=== PATIENT | female | born 1960 | race Caucasian/White ===

== ENCOUNTER → 2017-05-10 | Outpatient (CLI) | payer BC ==
--- NOTE | 2017-05-10 18:05 | KCIC ---
Bilateral digital screening mammograms: Reason for examination: Routine screening. Comparison is made to previous studies dated back to 04/19/2014. Interpretation was made with the benefit of CAD. The skin and nipples show no abnormalities. No abnormal axillary lymph nodes are seen. The breast parenchyma is extremely dense. (Breast density: Category D.) There appears to be a new nodule developing in the left breast posteriorly at the 10:00 C position which appears to measure approximately 8 mm in greatest dimension. Further evaluation with coned compression views and ultrasound is recommended. There are no other dominant masses, suspicious calcifications or architectural distortion. Impression: 8 mm nodular density developing in the 10:00 C position of the left breast. Recommend further evaluation with coned compression views and ultrasound. Your patient's mammogram demonstrates that she has dense breast tissue (breast density category C or D), which could hide abnormalities, and if she has other risk factors for breast cancer that have been identified, she might benefit from supplemental screening tests that may be suggested by you as her ordering physician. Dense breast tissue, in and of itself, is a relatively common condition. Therefore, this information is not provided to cause undue concern, but rather to raise your awareness and to promote discussion with your patient regarding the presence of other risk factors, in addition to dense breast tissue. Your patient's mammography results will be sent to her. BI-RAD Category 0: Incomplete. Additional imaging is recommended. "Our facility is accredited by the [employer] Mammography [employer]." This patient's information has been entered into a reminder system for the patient to be notified with the results of her examination and a target date for the next mammogram. Electronically signed by: Yeni Greene MD (05/10/2017 6:02 PM) [facility]
== END | disposition home or self-care (01) ==
LOC: KCIC MAMMO 17:23
PROVIDERS: ATTEND Family Medicine
DX: Z12.31 Encounter for screening mammogram for malignant neoplasm of breast (principal)
CPT/HCPCS: G0202; 77067

== ENCOUNTER → 2017-05-21 | Outpatient (CLI) | payer BC ==
--- NOTE | 2017-05-21 09:21 | KCIC ---
Diagnostic digital mammograms left breast: Reason for examination: Nodular density on screening mammogram. Comparison is made to mammographic examination dated 05/10/2017. Coned compression views were obtained of the left breast with attention to the upper inner quadrant. With these additional views, small parenchymal density persists which measures approximately 6 mm in size. Further evaluation with ultrasound will follow. IMPRESSION: Small nodular density appears to persist in the 10:00 C position. Ultrasound to follow. BI-RADS Category 0: Incomplete. Ultrasound to follow. Left breast ultrasound: Ultrasound examination of the left breast was performed. In the 12:00 position, there is a 7 mm cyst. In the 8:00 position 3 cm from the nipple, there is a benign-appearing 4.7 mm fibrocystic lesion. In the 10:00 position 6 cm from the nipple and probably corresponding to the area of mammographic concern, there is a 5 mm hypoechoic lesion with a fatty hilum suggested and this probably represents an intramammary lymph node. No suspicious nodules are seen. No abnormal appearing lymph nodes are seen in the left axilla. IMPRESSION: Small cyst at the 12:00 position. Small fibrocystic lesion at the 8:00 position. Probable intramammary lymph node at the 10:00 position. Recommend reevaluation in 6 months with mammograms and ultrasound of the left breast. BI-RADS Category 3: Probably Benign. "Our facility is accredited by the [employer]amm[employer]." This patient's information has been entered into a reminder system for the patient to be notified with the results of her examination and a target date for the next mammogram. Electronically signed by: Yeni Greene MD (05/21/2017 9:18 AM) [facility]
== END | disposition home or self-care (01) ==
LOC: KCIC MAMMO 07:53
PROVIDERS: ATTEND Family Medicine
DX: N63.20 Unspecified lump in the left breast, unspecified quadrant (principal); N60.02 Solitary cyst of left breast
CPT/HCPCS: 76641; G0206; 77065

== ENCOUNTER → 2017-11-29 | Outpatient (CLI) | payer BC | END | disposition home or self-care (01) | LOC: KCIC MAMMO 13:11 | DX: R92.8 Other abnormal and inconclusive findings on diagnostic imaging of breast (principal) | CPT/HCPCS: 76641; 77065 ==

== ENCOUNTER → 2018-05-17 | Outpatient (CLI) | payer BC ==
--- NOTE | 2018-05-17 14:10 | KCIC ---
EXAM: Bilateral screening mammogram. HISTORY: 57-year-old female presents for screening mammography. TECHNIQUE: Full-field digital craniocaudal and mediolateral oblique views of both breasts are obtained for evaluation. Computer aided detection with [employer] software version 9.3 was applied. COMPARISON: 11/29/2017 BREAST PARENCHYMAL DENSITY: Level D - Extremely dense. FINDINGS: There is no new suspicious mass, microcalcification or region of architectural distortion. IMPRESSION: BI-RADS Category 2: Benign finding(s). RECOMMENDATION: Annual mammography is recommended. If your mammogram demonstrates that you have dense breast tissue, which could hide abnormalities, and if you have other risk factors for breast cancer that have been identified, you might benefit from supplemental screening tests that may be suggested by your ordering physician. Dense breast tissue, in and of itself, is a relatively common condition. This information is not provided to cause undue concern, but rather to raise your awareness and to promote discussion with your physician regarding the presence of other risk factors, in addition to dense breast tissue. A report of your mammography results will be sent to you and your physician. You should contact your physician if you have any questions or concerns regarding this report. Mammography is a sensitive method for finding small breast cancers, but it does not detect them all and is not a substitute for careful clinical examination. A negative mammogram does not negate a clinically suspicious finding and should not result in delay in biopsying a clinically suspicious abnormality. PQRS compliance statement - Patient information was entered into a reminder system with a target due date for the next mammogram. "Our facility is accredited by the [employer] Mammography [employer]." Electronically signed by: Loni Farrell MD (05/17/2018 2:06 PM) [id number]
== END | disposition home or self-care (01) ==
LOC: KCIC MAMMO 12:27
PROVIDERS: ATTEND Family Medicine
DX: Z12.31 Encounter for screening mammogram for malignant neoplasm of breast (principal)
CPT/HCPCS: 77067